=== PATIENT | female | born 1960 | race Caucasian/White ===

== ENCOUNTER 2017-08-08 15:27 | Inpatient (IN) | payer BC, MEDICARE ==
[~2017-08-08] VITALS: Ht 162.6 cm; Wt 84.4 kg
--- NOTE | ~2017-08-08 | CN ---
Consultation Report [facility] [address] [place]. [address] NAME: NU ELAL : 60 STATUS : ADM IN [facility]#: [id number] AGE: 56 ADM/REG DATE : 08/08/17 MR#: [id number] REPORT SERV DATE: 08/09/17 DICTATED BY: CHANO LEW DATE: 08/08/17 REPORT STATUS : Draft TRANSCRIBED BY: MODL DATE: 08/08/17 ELECTROPHYSIOLOGY CONSULTATION DATE OF CONSULTATION: 08/08/2017 [facility] PH[facility]ICIAN: Vicente Gale M.D. INDICATIONS: Bradycardia. HISTORY OF PRESENT ILLNESS: Nu Leal is a 56-year-old female with a history of bipolar disorder, COPD, ongoing smoking, anxiety, and significant sinus node dysfunction. She presents with fatigue, weakness, effort intolerance, and presyncope. She is found to have marked sinus bradycardia with heart rates in the 30s. She has anterior T-wave inversions noted on ECG that is similar to previous ECG from April 2016. She has no chest pain. She does have exertional fatigue. No orthopnea, PND, or lower extremity edema. She presents initially to [facility] and is transferred to [facility] for electrophysiology consultation. Her is present for the discussion. PAST MEDICAL HISTORY: Bipolar disorder. Smoking. COPD. Anxiety. MEDICATIONS: At home is with [facility] home medicine form and reviewed. ALLERGIES: NONE KNOWN. SOCIAL HISTORY: Ongoing smoking. No alcohol. Denies illicits. The patient is . FAMILY HISTORY: Reviewed and noncontributory. REVIEW OF SYSTEMS: As per the HPI. Otherwise, all review of systems negative. On review of the records, there have been some question of possible multiple sclerosis in the past. She has seen Neurology for this. PHYSICAL EXAMINATION: VITAL SIGNS: Blood pressure is 123/78, pulse is 50, respiratory rate is 18. GENERAL: Appears stated age, no distress. EYES: Sclerae anicteric, no arcus senilis. MOUTH: Oral mucosa moist, lips acyanotic. NECK: Jugular venous pressure normal, no carotid bruits. LUNGS: Clear to auscultation bilaterally, normal inspiratory effort. CARDIAC: Irregular rhythm with marked bradycardia. ABDOMEN: Soft, nondistended, nontender. EXTREMITIES: No edema. SKIN: Warm and dry. Consultation Report [facility] [id number] [place]. [address] NAME: NU LEAL : 60 STATUS : ADM IN PAT#: [id number] AGE: 56 ADM/REG DATE : 08/08/17 MR#: [id number] REPORT SERV DATE: 08/09/17 DICTATED BY: CHANO LEW DATE: 08/08/17 REPORT STATUS : Draft TRANSCRIBED BY: MODL DATE: 08/08/17 NEURO/PSYCH: Alert and oriented, nonfocal, mood appropriate. LABORATORY AND DIAGNOSTIC STUDIES: Electrocardiogram is sinus bradycardia at a rate of 38 beats per minute. RSR prime pattern noted in lead V1. There is anterolateral T-wave inversions. Noted is similar to her previous tracing from over a year ago. White count is 18, the hemoglobin is 12.7, platelets 304. [place] is 0.76. Urinalysis unremarkable. Chest x-ray shows linear scar in the left lung, but no acute abnormalities. Potassium is 4.2, creatinine 1.01. Troponin is negative. IMPRESSION: 1. Severe sinus node dysfunction with significant symptoms. 2. Bipolar disorder. 3. Chronic obstructive pulmonary disease. 4. Smoking. 5. Anxiety. 6. Leukocytosis. RECOMMENDATIONS: Check white blood count and procalcitonin in the morning. Repeat BMP. N.p.o. after midnight for pacemaker in the morning. Nicotine patch. I have discussed the pacemaker procedure in depth and at length with the patient and her . We have addressed the rationale, logistics, and the risk of pacemaker addressed, risks to include, but not limited to bleeding, infection, vascular complications, cardiac perforation, failure to place lead, lead dislodgement, pneumothorax. All questions were answered and they wished to proceed. SARAH/BILL Chano Lew M.D. / [id number] CC: Hemal Dudley M.D.
[~2017-08-08 15:27] MED LIST: ADVAIR INH; ALEVE220 MG PO; BENZOTROPINE; ESKALITH PO; GAS-X80 MG PO; GEODON60 MG PO; KLONO1 PO; LAMICTAL10 PO; LEVOTHYROXIN75 MCG PO; MIRALAXPKT PO; NEXIUM40 PO; PROMETRIUM200 MG PO; PROZAC PO; PROZAC40 MG PO; SEROQUEL XR300 MG PO; TECFIDERA; TECFIDERA240 MG PO; TRAZ100 PO; XANAX2 MG PO
[2017-08-08] MEDS ORDERED: PROZAC PO (15:53)
[2017-08-08] MEDS ORDERED: LAMICTAL25 PO (15:53)
[2017-08-08] MEDS ORDERED: PROZ10 PO (15:54)
[2017-08-09 06:08] LABS: BASOPHILS 0 %; EOSINOPHILS 0 %; HEMATOCRIT 37.2 % (36.0-48.0); HEMOGLOBIN 11.8 g/dL (12.0-16.0); IMMATURE GRANULOCYTES 0.3 %; IMMATURE GRANULOCYTES ABSOLUTE 0.03 10/3/uL (0.0-0.11); LYMPHOCYTES 9.9 %; LYMPHOCYTES ABSOLUTE 1.18 10/3/uL (0.67-4.30); MEAN CORPUS HGB CONC 31.7 g/dL (32.0-36.0); MEAN CORPUSCULAR HEMOGLOB 29.4 pg (26.0-34.0); MEAN CORPUSCULAR VOLUME 92.8 fL (80-100); MEAN PLATELET VOLUME 10.9 fL (9.2-13.0); MONOCYTES ABSOLUTE 0.36 10/3/uL (0.21-1.20); NEUTROPHILS 86.8 %; NEUTROPHILS ABSOLUTE 10.37 10/3/uL (2.02-8.40); PLATELET COUNT 235 10/3/uL (150-400); RBC DISTRIBUTION WIDTH 13.3 % (12.0-16.0); RED CELL COUNT 4.01 10/6/uL (4.0-5.6); WHITE BLOOD CELLS 11.9 10/3/uL (4.5-10.5)
[2017-08-09 06:10] LABS: MANUAL DIFF NO %
[2017-08-09 06:14] LABS: INTERNATIONAL NORMAL RATI 1.1 UNITS (-)
[2017-08-09 06:29] LABS: BUN (BLOOD UREA NITROGEN) 16 MG/DL (6-23); CALCIUM, SERUM 9.7 MG/DL (8.5-10.4); CHLORIDE, SERUM 111 MMOL/L (96-112); CO2 (CARBON DIOXIDE) 24 MMOL/L (24-34); CREATININE 0.91 MG/DL (0.55-1.02); GFR AFRICAN AMERICAN 82 ML/MIN (>=60); GFR NON AFRICAN AMERICAN 71 ML/MIN (>=60); GLUCOSE, SERUM 143 MG/DL (60-99); POTASSIUM, SERUM 4.2 MMOL/L (3.5-5.3); SODIUM, SERUM 141 MMOL/L (135-148); ULTRASENSITIVE TSH 0.409 MCIU/ML (0.358-3.740)
[2017-08-09 08:15] LABS: PROCALCITONIN <0.05 ng/mL (<0.5)
[2017-08-09] MEDS ORDERED: ULTRAM50 PO (18:18)
== END 2017-08-09 20:03 | disposition home or self-care (01) | DRG 244 ==
LOC: ENRESERV → ENRESERVDT → ENRESERVTM → 5NO 18:42
PROVIDERS: Internal Medicine Cardiovascular Disease
PROC: 0JH606Z Insertion of Pacemaker, Dual Chamber into Chest Subcutaneous Tissue and Fascia, Open Approach (ICD-10-PCS; principal; 2017-08-09)
PROC: 02H63JZ Insertion of Pacemaker Lead into Right Atrium, Percutaneous Approach (ICD-10-PCS; 2017-08-09)
PROC: 02HK3JZ Insertion of Pacemaker Lead into Right Ventricle, Percutaneous Approach (ICD-10-PCS; 2017-08-09)
DX: I49.5 Sick sinus syndrome (principal); J44.9 Chronic obstructive pulmonary disease, unspecified; F31.9 Bipolar disorder, unspecified; F17.210 Nicotine dependence, cigarettes, uncomplicated; F41.9 Anxiety disorder, unspecified
CPT/HCPCS: 71010; 71020; 80048; 84145; 84443; 84703; 85025; 85610; 93005; A9270-GY; C1785; C1892; C1898; J0690; J2405; J3010; Q9967